=== PATIENT | female | born 2005 | race Caucasian/White ===

== ENCOUNTER 2025-01-14 11:32 | Outpatient (CLI) | payer OTHER, SELFPAY | END 2025-01-14 11:33 | disposition home or self-care (01) | LOC: KYNREF 11:34 | PROVIDERS: PCP Nurse Practitioner Family; Visit Provider Nurse Practitioner Family | DX: Z11.9 Encounter for screening for infectious and parasitic diseases, unspecified (principal) | CPT/HCPCS: 86480 ==

== ENCOUNTER 2025-02-04 11:43 | Outpatient (CLI) | payer OTHER, SELFPAY ==
[2025-02-04 13:58] LABS: Trichomonas No Trichomonas Seen (None Seen)
[2025-02-04 15:06] LABS: Chlamydia DNA Amplified* NOT DETECTED (No Detected); GC DNA Amplified* NOT DETECTED (No Detected)
== END 2025-02-04 11:44 | disposition home or self-care (01) ==
PROVIDERS: PCP Nurse Practitioner Family; Visit Provider Nurse Practitioner Family
DX: R10.20 Pelvic and perineal pain unspecified side (principal); N89.8 Other specified noninflammatory disorders of vagina
CPT/HCPCS: 81001; 87086; 87210; 87491; 87591